=== PATIENT | male | born 1980 | race African-American/Black ===

== ENCOUNTER 2023-01-09 21:13 | Emergency (ER) | payer SELFPAY ==
[~2023-01-09] VITALS: Ht 185.5 cm; Wt 102.0 kg
[2023-01-09] MEDS ORDERED: ALBU8.5H6 INH (21:28)
[2023-01-09] MEDS ORDERED: RT-ALBUTEROL HFA 8.5 GM INHALER IH STA (21:29)
--- NOTE | 2023-01-09 21:29 | ED Cough/URI ---
General Chief Complaint: Cough/Cold/Flu Symptoms Stated Complaint: HEADACHE|STUFFY NOSE Source: patient Exam Limitations: no limitations History of Present Illness Date Seen by Provider: January 09, 2023 Time Seen by Provider: 21:17 Initial Comments 42-year-old male with past medical history is asthma and cigarette smoking coming in due to 3 days of cough, congestion, mild headache. Denies any fever, neck stiffness, nausea, vomiting, abdominal pain, rash, chest pain, or any other concerns. He is unsure if anyone around him has been sick. Otherwise denying any other acute complaints Allergies and Home Medications Allergies Coded Allergies: No Known Drug Allergies (Unverified , 01/09/23) Patient Home Medication List Home Medication List Reviewed: Yes Albuterol Sulfate (Ventolin Hfa) 90 Mcg Hfa.aer.ad, 2 PUFF INH Q4H PRN for WHEEZING Prescribed by: GERMAN ROD on 01/09/232127 Review of Systems Review of Systems Constitutional: No fever EENTM: nose congestion Respiratory: cough Cardiovascular: No chest pain Gastrointestinal: diarrhea Genitourinary: no symptoms reported Musculoskeletal: no symptoms reported Skin: no symptoms reported Psychiatric/Neurological: No Symptoms Reported Past [id number]-[id number]-Rqovdy Hx Patient Social History Tobacco Use?: Yes Tobacco type used: Cigarettes Physical Exam Vital Signs - First Documented Capillary Refill : Height: '" Weight: lbs. oz. kg; BMI Method: General Appearance: WD/WN, no apparent distress Eyes: Bilateral Eye Normal Inspection HEENT: PERRL/EOMI, normal ENT inspection, pharynx normal Neck: non-tender, full range of motion, supple, normal inspection Respiratory: chest non-tender, no respiratory distress, wheezing Cardiovascular: regular rate, rhythm, no edema, no murmur Gastrointestinal: normal bowel sounds, non tender, soft; No distended, No guarding, No rebound Extremities: normal range of motion, non-tender, normal inspection, no pedal edema, no calf tenderness, normal capillary refill Neurologic/Psychiatric: no motor/sensory deficits, alert, normal mood/affect Skin: normal color, warm/dry Progress/Results/Core Measures Suspected Sepsis SIRS Temperature: Pulse: Respiratory Rate: Blood Pressure / Mean: Results/Orders Vital Signs/I&O 01/09/23 01/09/23 21:20 21:20 Temp 36.6 Pulse 94 Resp 16 B/P (MAP) Pulse Ox 97 O2 Delivery Room Air Room Air Capillary Refill : Progress Note : Progress Note 42-year-old male with above history coming in due to URI type symptoms. ABCs were intact and vitals are stable on presentation. He does have a history of asthma, and is wheezing on exam. We will give him an inhaler here since he does not have one at home. We will also give him a dose of steroids due to likely mild asthma exacerbation. This does sound viral and he is overall very well- appearing and tolerating p.o. Oxygen saturation is normal and he is in no respiratory distress, chest x-ray considered but not needed at this time. COVID test sent and is pending. Consider labs as well, but likely will not change his clinical course. I believe he stable for discharge with outpatient follow-up. He was sent home with strict return precautions Departure Impression Primary Impression: Upper respiratory infection Qualified Codes: J06.9 - Acute upper respiratory infection, unspecified Additional Impression: Asthma exacerbation Qualified Codes: J45.21 - Mild intermittent asthma with (acute) exacerbation Disposition: HOME, SELF-CARE Condition: Stable Departure-Patient Inst. Decision time for Depature: 21:35 Patient Instructions: Viral Upper Respiratory Infection, Adult (DC), Asthma, Adult ED Add. Discharge Instructions: You likely do have a virus which set [id number] asthma. The steroid you received in the ER should help over the next day or so. Use the inhaler every 4 hours as needed for wheezing or shortness of breath. It can also sometimes help with cough. Otherwise just use [id number] medications. I suspect you will start feeling better within the next week or so. Scripts Albuterol Sulfate (Ventolin Hfa) 90 Mcg Hfa.aer.ad 2 PUFF INH Q4H PRN for WHEEZING for 30 Days, #1 UNIT 1 PUFF = 90 MCG Prov: GERMAN ROD MD 01/09/23 Work/School Note: Work Release Form Date Seen in the Emergency Department: January 09, 2023 Return to Work: Jan 11, 2023 Restrictions: Return-No Fever (24hrs) GERMAN ROD MD January 09, 2023 21:29
[2023-01-09 21:39] VITALS: BP 178/89
== END 2023-01-09 21:39 | disposition home or self-care (01) ==
LOC: ER 21:17
DX: J45.901 Unspecified asthma with (acute) exacerbation (principal); J06.9 Acute upper respiratory infection, unspecified; F17.210 Nicotine dependence, cigarettes, uncomplicated; Z20.822 Contact with and (suspected) exposure to COVID-19
CPT/HCPCS: 87636; 99283